=== PATIENT | female | born 2000 | race Caucasian/White ===

== ENCOUNTER 2023-11-20 | Emergency (ER) | payer MEDICAID, SELFPAY ==
[2023-11-20 00:02] VITALS: BP 117/66; PULSE 75; RESP 16; TEMP 37; O2SAT 100; BMI 20.7
--- NOTE | 2023-11-20 00:40 | ED.RN ---
Pt's name was called for rooming and pt not in waiting room, bathroom or outside.
== END 2023-11-20 00:42 | disposition left against medical advice (07) ==
LOC: ED 00:42
DX: Z00.00 Encounter for general adult medical examination without abnormal findings (principal)
CPT/HCPCS: 99281

== ENCOUNTER 2024-12-01 07:51 | Day surgery (SDC) | payer OTHER, SELFPAY ==
[2024-12-01] VITALS (10 sets, daily range): BP systolic 97–131; BP diastolic 59–78; PULSE 71–89; RESP 16; TEMP 36.4–36.7; O2SAT 96–100; BMI 21.2
--- NOTE | 2024-12-01 08:18 | PCM.PRE.AN2 ---
ASA Classification* ASA Classification ASA Classification: 3 Assessment & Plan Anesthesia* Anesthesia Assessment Anesthesia Assessment: Discussed sedation and/or anesthesia options, risks, benefits, and alternatives with patient/parents/legal guardian/POA. Questions invited. The patient/parents/legal guardian/POA seems to understand and agrees to proceed with anesthesia plan. Reviewed the physical assessment, medical history, allergy history and patient home medications list prior to surgery/procedure/anesthetic and documented any changes. Performed airway and anesthesia risk assessments. Anesthesia Type Anesthesia Type: General Anesthesia Focused Assessment* Airway Assessment Mouth opens: >3 cm Mallampati Score: II Labs Anesthesia Preop lab: CBC CHEMISTRY COAG Urine Test Pending 12/01/24 08:10 12/01/24 Pre-Assessment Diagnosis/Proposed Procedure Planned Operative Procedure(s): LEFT CUBITAL TUNNEL DECOMPRESSION, LEFT OPEN CARPAL TUNNEL RELEASE Anesthesia History Anesthesia History - neurological surgeon: Anesthesia History - neurological surgeon Hx Hospitalization No 11/17/24 15:41 Any Problems With Anesthesia No 11/17/24 15:41 Cholinesterase deficiency No 11/17/24 15:41 You/Your Family Experience No 11/17/24 15:41 fever (hyperthermia) with Relationship Recent Exposure to Contagious Disease Does patient have nerve No 11/17/24 15:41 stimulator Patient instructed to have device shut off --Does patient have Pacemaker or ICD? When Was Last Pacemaker Check QUESTION #4 FULL TEXT: You/Your Family Experience fever (hyperthermia) with Anesthesia Last Oral Intake Last Oral intake: Last Oral Intake NPO since Meds taken in AM with sips of water? Meds patient instructed to take am of surgery PONV PONV - neurological surgeon: PONV - neurological surgeon Female Yes 11/17/24 15:41 HX of Motion Sickness No 11/17/24 15:41 HX of N/V After Surgery No 11/17/24 15:41 Non-Smoker Yes 11/17/24 15:41 Duration of Surgery greater No 11/17/24 15:41 than 60 minutes Number of Risk Factors 2 11/17/24 15:41 PONV Score Moderate Risk 11/17/24 15:41 Height & Weight Height & Weight: Anesthesia: Height & Weight Height 5 ft 1 in 11/20/23 00:02 Respiratory Assessment Respiratory Assessment - neurological surgeon: Respiratory Tract Infection Hx - neurological surgeon Hx Respiratory Tract Infection No 11/17/24 15:41 STOP Sleep Apnea STOP Sleep Apnea - neurological surgeon: STOP Sleep Apnea - neurological surgeon Hx Hypertension No 11/17/24 15:41 Hx Sleep Apnea No 11/17/24 15:41 CPAP BIPAP Do you snore loudly (louder No 11/17/24 15:41 than talking or can be heard Do you often feel tired/ No 11/17/24 15:41 fatigued/ sleepy during daytime? Has anyone observed you stop No 11/17/24 15:41 breathing during sleep? STOP Results Negative 11/17/24 15:41 QUESTION #5 FULL TEXT : Do you snore loudly (louder than talking or can be heard through closed doors)? Tobacco Use History Tobacco Use History - neurological surgeon: Tobacco Use History - neurological surgeon Tobacco Use Smoking Status Current every day smoker 11/17/24 15:41 Hx Tobacco Use Yes 11/17/24 15:41 Years Smoking Packs Smoked per Day Smoking Cessation Date was within the last 15 years Hx Smoking Cessation Date Hx Smoking Cessation Counseling Hematologic Medial History Hematologic Hx - neurological surgeon: Hematologic Medical Hx - crack off person Hx of Blood Transfusion No 11/17/24 15:41 Hx of Transfusion in last 3 No 11/17/24 15:41 Months Date of Last Transfusion (if within last 3 months) Ever experience any problems No 11/17/24 15:41 with transfusion(s)? Specify any problems Hx of Preganancy in last 3 No 11/17/24 15:41 Months Nurse Filling Out Transfusion [email or web address] 11/17/24 15:41 & Questions: Date: 11/17/24 11/17/24 15:41 Time: 15:43 11/17/24 15:41 Patient unable to answer at this time (ie. confused, unrespo /Reproduction History /Reproductive History - neurological surgeon: /Reproductive Hx- neurological surgeon Hx Now No 11/17/24 15:41 Gestational Age (in weeks): EDC: Hx Hx Para Hx Section SAB No 11/17/24 15:41 Active Medications Active Medications: Current Medications Generic Name Dose Route Start Last Admin Trade Name Freq PRN Reason Stop Dose Admin Cefazolin Sodium 1 gm in 50 mls @ 100 mls/hr 12/01/24 09:30 IV 12/01/24 09:59 INTRAOP ONE Lactated Ringer's 1,000 mls @ 15 mls/hr 12/01/24 08:15 IV .Q48H COLETTE PFSH Medical History Schizophrenia Bipolar disorder Depression Anxiety Heartburn Smoker Allergy/AdvReac Type Severity Reaction Status Date / Time No Known Allergies Allergy Verified 12/01/24 08:18 Social History Smoking Status: Current every day smoker tobacco type: cigarettes Review of Systems (Anesthesia) ROS Narrative System reviewed and no additional complaints, except as documented.
[2024-12-01 08:25] LABS: Internal QC Validated? YES +Cl - CLEAR BKGD; Pregnancy, Urine Negative Negative; Record Kit Lot#,Urine Preg 962302
[2024-12-01] MEDS: Lactated Ringers 1,000 ML 15 ML IV (08:40)
[2024-12-01] MEDS: fentaNYL 100 MCG/2 ML Ampul IV (09:25)
[2024-12-01] MEDS: Cefazolin 1 GM/5 ML Vial IV (09:30)
[2024-12-01] MEDS: Bupiv/Epi 0.25% 30 ML Vial (09:45)
--- NOTE | 2024-12-01 10:41 | PCM.POST.ANE ---
Anesthesia: Postop Eval I Current Vital Signs Temperature: 98.1 F Pulse Rate: 79 Blood Pressure: 120/72 Respiratory Rate: 16 Pulse Ox: 96 Oxygen Delivery Method: Room Air Assessment Airway patent: Yes Spontaneous unlabored respirations: Yes Mental status: Awake and Calm nausea: No Vomiting: No Anesthesia Complication: No Fluid Hydration Crystalloid volume administer (ml): 400 Total IV fluid infused: 400 Progress Note Anesthesia document: Postop Eval 1 completed: Yes
--- NOTE | 2024-12-01 11:45 | POSTOPAN2_ITS ---
Anesthesia Postop Eval I Sum Postop Eval Completion status Anesthesia document: Postop Eval 1 completed: Yes Anesthesia Postop Eval I Summary Anesthesia Postop Eval I Summary: Anesthesia Postop Eval I: Assessment Summary Airway patent Yes 12/01/24 10:42 [email or web address] Spontaneous unlabored Yes 12/01/24 10:42 [email or web address] respirations Mental status Awake,Calm 12/01/24 10:42 [email or web address] nausea No 12/01/24 10:42 [email or web address].[email or web address] Vomiting No 12/01/24 10:42 [email or web address].[email or web address] Anesthesia Postop Eval I: Fluid Summary Crystalloid volume administer 400 12/01/24 10:42 [email or web address].[email or web address] (ml) Colloids volume administered ( ml) Blood Product volume administered (ml) Total IV fluid infused 400 12/01/24 10:42 [email or web address].[email or web address] Anesthesia Postop Eval I: Summary Notes Anesthesia Complication No 12/01/24 10:42 [email or web address] Anesthesia Complication Comment: Post-operative progress note Anesthesia: Postop Eval II Evaluation Mental status: Awake Pain Level: 0 nausea: No Vomiting: No
--- NOTE | 2024-12-01 11:45 | PCM.POSTANE2 ---
Anesthesia Postop Eval I Sum Postop Eval Completion status Anesthesia document: Postop Eval 1 completed: Yes Anesthesia Postop Eval I Summary Anesthesia Postop Eval I Summary: Anesthesia Postop Eval I: Assessment Summary Airway patent Yes 12/01/24 10:42 [email or web address] Spontaneous unlabored Yes 12/01/24 10:42 [email or web address] respirations Mental status Awake,Calm 12/01/24 10:42 [email or web address] nausea No 12/01/24 10:42 [email or web address] [email or web address] Vomiting No 12/01/24 10:42 [email or web address] Anesthesia Postop Eval I: Fluid Summary Crystalloid volume administer 400 12/01/24 10:42 [email or web address] [email or web address] (ml) Colloids volume administered ( ml) Blood Product volume administered (ml) Total IV fluid infused 400 12/01/24 10:42 [email or web address] [email or web address] Anesthesia Postop Eval I: Summary Notes Anesthesia Complication No 12/01/24 10:42 [email or web address] [email or web address] Anesthesia Complication Comment: Post-operative progress note Anesthesia: Postop Eval II Evaluation Mental status: Awake Pain Level: 0 nausea: No Vomiting: No
--- NOTE | 2024-12-01 18:28 | OP.PCM_ITS ---
Operative Report (Standard) Operative Information Date of Procedure: 12/01/24 Pre-Operative Diagnosis: 1. Left carpal tunnel syndrome 2. Left cubital tunnel syndrome Post-Operative Diagnosis: 1. Left carpal tunnel syndrome 2. Left cubital tunnel syndrome Surgery/Procedure Performed: 1. Left open carpal tunnel release 2. Left cubital tunnel decompression with subcutaneous ulnar nerve transposition embedded software test engineer: Yes Horizontal Boring Mill Set Up Operator: Arlin Griffin Tasks completed by first aid nurse: Opening & closing, Hemostasis: Electrocautery and Retracting Additional assistant pastry chef?: No Type of Anesthesia: General RN Documented Start/Stop Times: Operation Date: 12/01/24 09:30 Case Time Into Pre-Op 12/01/24 08:04 Out of Pre-Op 12/01/24 09:17 Anesthesia Start 12/01/24 09:19 Into Room 12/01/24 09:19 Procedure Start 12/01/24 09:42 Procedure End 12/01/24 10:27 Anesthesia End 12/01/24 10:31 Out of Room 12/01/24 10:31 Into Recovery 12/01/24 10:33 Into Phase II Recovery 12/01/24 11:37 Out of Recovery 12/01/24 11:37 Out of Phase II 12/01/24 12:13 Procedure Start Time: 09:42 Procedure Stop Time: 10:27 Select all DRAINS/GRAFTS/IMPLANTS that apply: None Estimated Blood Loss: 5 cc Specimen collected: No Description of surgery: Description of procedure: Patient was seen in preoperative holding area. Patient was identified by name, medical record number, date of . The operative extremity was marked with a surgical marker. We confirmed informed consent with the patient and all questions were answered to the patient's satisfaction. At time of her procedure, patient was brought to the operative suite and positioned supine a standard operating table. All bony prominences were well- padded. General anesthesia was induced and endotracheal tube placed. The operative upper extremity was then prepped for surgery by first applying a well- padded pneumatic tourniquet to the left upper arm. The hand table attached to the left side of the table. We spun the bed 90 degrees. The left upper extremity was then prepped and draped in normal, sterile orthopedic fashion. 1 g Ancef was administered prior to incision by anesthesia staff. We performed a timeout at this point confirming side, site, and operation to be performed. No concerns voiced and elected to proceed. Left upper extremity was then exsanguinated with an Esmarch bandage. Tourniquet was inflated to 250 mmHg for approximately 30 minutes. Esmarch was removed. I first of my attention of the carpal tunnel. Standard open carpal tunnel release was performed in line with the fourth ray proximal to Oakley's cardinal line and distal to the wrist crease. Full-thickness skin flaps were developed down to the level of the fascia. Heiss retractor was placed. Fascia was split in line with the incision. Transverse carpal ligament was then identified after taking the Heiss retractor deeper. Transverse carpal ligament was then identified and split in line with the incision. Carpal tunnel contents were identified. Proximal extension was performed ensuring complete release of the TCL. The distal antebrachial fascia was also released approximately 5 mm. Distally, release was continued until perivascular fat was identified. No aberrancies of median nerve were identified. Field block was administered with quarter percent bupivacaine with epinephrine. Skin edges were reapproximated interrupted horizontal mattress 4-0 nylon suture. I then turned my attention to the elbow. Oblique incision was made along the medial elbow between the medial epicondyle and olecranon. Blunt dissection was carried in the subcutaneous plane identifying the medial antebrachial cutaneous nerve which was protected throughout the case. I then identified the ulnar nerve at the 2 heads of the flexor carpi ulnaris. The superficial and deep fascia of the 2 heads of the FCU were released to free the ulnar nerve. I then dissected more proximally identifying Briggs's ligament which was released. The arcade of [place] was identified and released. I was able to palpate the nerve into the posterior compartment appeared to be free from any remaining constriction points or adhesions. The elbow was brought through range of motion and significant anterior instability was noted with flexion of the elbow. And placed a vessel loop around the ulnar nerve to mobilize it dissected free from surrounding adhesions and mobilize it out of its groove. I resected a 1 x 5 cm slip of medial intermuscular septum. I elevated a 3 cm flap of the flexor pronator mass fascia to secured to the subcutaneous fascia after the nerve had been transposed. Horizontal mattress 0 Vicryl suture was placed ensuring appropriate tension and free of kinking of the ulnar nerve. The elbow had a full range of motion and the ulnar was free and did not demonstrate any additional posterior instability. Wound was irrigated. Field block was administered with 10 cc quarter percent bupivacaine with epinephrine. The tourniquet was then deflated. Hemostasis was excellent. A Dermis was reapproximated buried 3-0 Vicryl suture and skin was closed with subcuticular 4- 0 Monocryl and Dermabond. Bulky sterile compression dressing was then applied. Patient was placed in a simple sling. Patient tolerated procedure well without apparent complication. Patient was transferred to PACU in stable condition. Need for skilled assistant pastry chef: Arlin Griffin PA-C was critical to the outcome of the case. During the course of the procedure the physician assistant pastry chef played a vital role. Her intimate knowledge of my steps in the procedure aided in safe and expedient completion of the procedure. The PA played a vital role in positioning particularly in obtaining the appropriate positioning. The PA was also vital in the retraction of soft tissues during the exposure and protecting vital structures. She also played a vital role in closure and dressing application with my direct supervision. Post Operative Plan: Weightbearing: Nonweightbearing operative extremity Antibiotics: Ancef 2 g x 1 dose preoperatively DVT Prophylaxis: Not indicated Garcia: None Dressing: Maintain surgical dressing x 2 days then okay to shower and removed. X-Rays: 2 weeks postop in the office Pain Medication: Oxycodone Rx upon discharge Follow-up: 2 weeks post-operatively in the office Surgical Findings: Unstable ulnar nerve following release. No aberrancies of the median nerve noted. Complete release of the transverse carpal ligament. Complications Complications: No Admit VTE Documentation VTE Present on Admission: No VTE Mechan Device Prophylaxis: SCD's VTE Pharm Prophylaxis ordered?: No Reason prophylaxis not ordered: Treatment Not Indicated
== END 2024-12-01 12:13 | disposition home or self-care (01) ==
LOC: SDC 08:00 → AC 08:02
PROVIDERS: Student in an Organized Health Care Education/Training Program; PCP Student in an Organized Health Care Education/Training Program; Referring Provider Student in an Organized Health Care Education/Training Program; Visit Provider Student in an Organized Health Care Education/Training Program
PROC: (CPT 64721; principal; 2024-12-01 09:15)
DX: G56.03 Carpal tunnel syndrome, bilateral upper limbs (principal); G56.23 Lesion of ulnar nerve, bilateral upper limbs; M25.322 Other instability, left elbow; F17.210 Nicotine dependence, cigarettes, uncomplicated; Z59.819 Housing instability, housed unspecified
CPT/HCPCS: 64718; 64721; 01810; 81025; J2405

== ENCOUNTER 2025-02-23 05:56 | Day surgery (SDC) | payer OTHER, SELFPAY ==
[2025-02-23] VITALS (13 sets, daily range): BP systolic 87–121; BP diastolic 44–79; PULSE 74–87; RESP 12–16; TEMP 36.3–37.1; O2SAT 95–100; BMI 23.3
[2025-02-23 06:29] LABS: Internal QC Validated? YES +Cl - CLEAR BKGD; Pregnancy, Urine Negative Negative; Record Kit Lot#,Urine Preg 0000980607
[2025-02-23] MEDS: Lactated Ringers 1,000 ML 15 ML IV (06:46)
--- NOTE | 2025-02-23 07:09 | PCM.PRE.AN2 ---
ASA Classification* ASA Classification ASA Classification: 2 Assessment & Plan Anesthesia* Anesthesia Assessment Anesthesia Assessment: Discussed sedation and/or anesthesia options, risks, benefits, and alternatives with patient/parents/legal guardian/POA. Questions invited. The patient/parents/legal guardian/POA seems to understand and agrees to proceed with anesthesia plan. Reviewed the physical assessment, medical history, allergy history and patient home medications list prior to surgery/procedure/anesthetic and documented any changes. Performed airway and anesthesia risk assessments. Anesthesia Type Anesthesia Type: General History Source History Obtained from:: Patient and Chart Anesthesia Focused Assessment* Temperature: 98.7 F Pulse Rate: 74 Blood Pressure: 120/79 Respiratory Rate: 16 Pulse Ox: 100 Oxygen Delivery Method: Room Air Airway Assessment Mouth opens: >3 cm Mallampati Score: I Teeth Condition: Chipped/Broken (Multiple chipped teeth.) and Missing (Multiple missing teeth. Rest are tight.) Neck Range of motion (ROM): Full ROM Labs Anesthesia Preop lab: CBC CHEMISTRY COAG Urine Test Negative Negative Today, 06:10 Pre-Assessment Diagnosis/Proposed Procedure Planned Operative Procedure(s): RIGHT OPEN CARPAL TUNNEL RELEASE RIGHT CUBITAL TUNNEL RELEASE Anesthesia History Anesthesia History - systems qa analyst: Anesthesia History - systems qa analyst Hx Hospitalization No 02/17/25 11:19 Any Problems With Anesthesia No 02/17/25 11:19 Cholinesterase deficiency No 02/17/25 11:19 You/Your Family Experience No 02/17/25 11:19 fever (hyperthermia) with Relationship Recent Exposure to Contagious No 02/23/25 06:48 Disease Does patient have nerve No 02/17/25 11:19 stimulator Patient instructed to have device shut off --Does patient have Pacemaker No 02/23/25 06:48 or ICD? When Was Last Pacemaker Check QUESTION #4 FULL TEXT: You/Your Family Experience fever (hyperthermia) with Anesthesia Last Oral Intake Last Oral intake: Last Oral Intake NPO since 02:00 02/23/25 06:48 Meds taken in AM with sips of No 02/23/25 06:48 water? Meds patient instructed to take am of surgery Any additional information?: Yes NPO since: 02:00 (Patient had water at 2 AM.) Meds taken in AM with sips of water?: No PONV PONV - systems qa analyst: PONV - systems qa analyst Female Yes 02/17/25 11:19 HX of Motion Sickness No 02/17/25 11:19 HX of N/V After Surgery No 02/17/25 11:19 Non-Smoker Yes 02/17/25 11:19 Duration of Surgery greater Yes 02/17/25 11:19 than 60 minutes Number of Risk Factors 3 02/17/25 11:19 PONV Score Moderate Risk 02/17/25 11:19 Height & Weight Height & Weight: Anesthesia: Height & Weight Height 5 ft 1 in 02/23/25 06:48 Weight: 56 kg 02/23/25 06:48 Body Mass Index (BMI) 23.3 02/23/25 06:48 Respiratory Assessment Respiratory Assessment - systems qa analyst: Respiratory Tract Infection Hx - systems qa analyst Hx Respiratory Tract Infection No 02/17/25 11:19 STOP Sleep Apnea STOP Sleep Apnea - systems qa analyst: STOP Sleep Apnea - systems qa analyst Hx Hypertension No 02/17/25 11:19 Hx Sleep Apnea No 02/17/25 11:19 CPAP BIPAP Do you snore loudly (louder No 02/17/25 11:19 than talking or can be heard Do you often feel tired/ No 02/17/25 11:19 fatigued/ sleepy during daytime? Has anyone observed you stop No 02/17/25 11:19 breathing during sleep? STOP Results Negative 02/17/25 11:19 QUESTION #5 FULL TEXT : Do you snore loudly (louder than talking or can be heard through closed doors)? Tobacco Use History Tobacco Use History - systems qa analyst: Tobacco Use History - systems qa analyst Tobacco Use Smoking Status Former smoker 02/17/25 11:19 Hx Tobacco Use Yes 02/17/25 11:19 Years Smoking Packs Smoked per Day Smoking Cessation Date was Yes - quit smoking within 15 02/17/25 11:19 within the last 15 years years Hx Smoking Cessation Date 12/04/24 02/17/25 11:19 Hx Smoking Cessation Counseling Hematologic Medial History Hematologic Hx - systems qa analyst: Hematologic Medical Hx - release of information specialist Hx of Blood Transfusion No 02/17/25 11:19 Hx of Transfusion in last 3 No 02/17/25 11:19 Months Date of Last Transfusion (if within last 3 months) Ever experience any problems No 02/17/25 11:19 with transfusion(s)? Specify any problems Hx of Preganancy in last 3 No 02/17/25 11:19 Months Nurse Filling Out Transfusion DSCHRIBER 02/17/25 11:19 & Questions: Date: 02/17/25 02/17/25 11:19 Time: 11:20 02/17/25 11:19 Patient unable to answer at this time (ie. confused, unrespo /Reproduction History /Reproductive History - systems qa analyst: /Reproductive Hx- systems qa analyst Hx Now No 02/17/25 11:19 Gestational Age (in weeks): EDC: Hx Hx Para Hx Section SAB No 02/17/25 11:19 Active Medications Active Medications: Current Medications Generic Name Dose Route Start Last Admin Trade Name Freq PRN Reason Stop Dose Admin Cefazolin Sodium 2 gm/ Sodium 110 mls @ 200 mls/hr 02/23/25 07:30 Chloride IV 02/23/25 08:02 INTRAOP ONE Lactated Ringer's 1,000 mls @ 15 mls/hr 02/23/25 06:15 02/23/25 06:46 IV 15 mls/hr .Q48H COLETTE Administration PFSH Medical History Marijuana use Alcohol use Substance abuse Former smoker Schizophrenia Bipolar disorder Depression Anxiety Heartburn Allergy/AdvReac Type Severity Reaction Status Date / Time oxycodone AdvReac Intermediate Nausea Verified 02/17/25 11:18 Surgical History History of carpal tunnel surgery of left wrist Social History Smoking Status: Former smoker Review of Systems (Anesthesia) ROS Narrative System reviewed and no additional complaints, except as documented.
[2025-02-23] MEDS: Midazolam 2 MG/2 ML Syringe IV (07:27)
[2025-02-23] MEDS: Cefazolin 1 GM/5 ML Vial 2 GM IV (07:27)
[2025-02-23] MEDS: Lidocaine 1% (5 ml sdv) 5 ML Vial 6 ML IV (07:32)
[2025-02-23] MEDS: fentaNYL 100 MCG/2 ML Ampul IV (07:42)
[2025-02-23] MEDS: Lidocaine 1% /Epi 1:100 (20ml) 20 ML Vial (08:16)
[2025-02-23] MEDS: dexMEDEtomidine 200 MCG/2 ML ML 20 MCG IV (08:19)
--- NOTE | 2025-02-23 08:29 | OP.PCM_ITS ---
Operative Report (Standard)
--- NOTE | 2025-02-23 08:29 | PCM.OPRPT ---
Operative Report (Standard) Operative Information Date of Procedure: 02/23/25 Pre-Operative Diagnosis: 1. Right carpal tunnel syndrome 2. Right cubital tunnel syndrome Post-Operative Diagnosis: 1. Right carpal tunnel syndrome 2. Right cubital tunnel syndrome with ulnar nerve instability Surgery/Procedure Performed: 1. Right open carpal tunnel release 2. Right cubital tunnel decompression with anterior subcutaneous ulnar nerve transposition refrigerator tester: Yes Fish Roe Processor: Arlin Griffin Tasks completed by first aid instructor: Opening & closing and Retracting Type of Anesthesia: General RN Documented Start/Stop Times: Operation Date: 02/23/25 07:30 Case Time Into Pre-Op 02/23/25 06:05 Out of Pre-Op 02/23/25 07:22 Anesthesia Start 02/23/25 07:27 Into Room 02/23/25 07:27 Procedure Start 02/23/25 07:44 Procedure End 02/23/25 08:22 Anesthesia End 02/23/25 08:27 Out of Room 02/23/25 08:27 Procedure Start Time: 07:44 Procedure Stop Time: 08:22 Select all DRAINS/GRAFTS/IMPLANTS that apply: None Estimated Blood Loss: 10 cc Specimen collected: No Description of surgery: Patient was seen in preoperative holding area. Patient was identified by name, medical record number, date of . The operative extremity was marked with a surgical marker. We confirmed informed consent with the patient and all questions were answered to the patient's satisfaction. At time of her procedure, patient was brought to the operative suite and positioned supine a standard operating table. All bony prominences were well-padded. General anesthesia was induced and endotracheal tube placed. The operative upper extremity was then prepped for surgery by first applying a well-padded pneumatic tourniquet to the right upper arm. The hand table attached to the right side of the table. We spun the bed 90 degrees. The right upper extremity was then prepped and draped in normal, sterile orthopedic fashion. 1 g Ancef was administered prior to incision by anesthesia staff. We performed a timeout at this point confirming side, site, and operation to be performed. No concerns voiced and elected to proceed. Right upper extremity was then exsanguinated with an Esmarch bandage. Tourniquet was inflated to 250 mmHg for approximately 25 minutes. Esmarch was removed. I first of my attention of the carpal tunnel. Standard open carpal tunnel release was performed in line with the fourth ray proximal to Oakley's cardinal line and distal to the wrist crease. Full-thickness skin flaps were developed down to the level of the fascia. Heiss retractor was placed. Fascia was split in line with the incision. Transverse carpal ligament was then identified after taking the Heiss retractor deeper. Transverse carpal ligament was then identified and split in line with the incision. Carpal tunnel contents were identified. Proximal extension was performed ensuring complete release of the TCL. The distal antebrachial fascia was also released approximately 5 mm. Distally, release was continued until perivascular fat was identified. No aberrancies of median nerve were identified. Field block was administered with quarter percent bupivacaine with epinephrine. Incision was closed with interrupted intradermal buried 2-0 Vicryl suture and subcuticular 4 Monocryl and Dermabond/Steri-Strip. I then turned my attention to the elbow. Oblique incision was made along the medial elbow between the medial epicondyle and olecranon. Blunt dissection was carried in the subcutaneous plane identifying the medial antebrachial cutaneous nerve which was protected throughout the case. I then identified the ulnar nerve at the 2 heads of the flexor carpi ulnaris. The superficial and deep fascia of the 2 heads of the FCU were released to free the ulnar nerve. I then dissected more proximally identifying Briggs's ligament which was released. The arcade of [place] was identified and released. I was able to palpate the nerve into the posterior compartment appeared to be free from any remaining constriction points or adhesions. The elbow was brought through range of motion and significant anterior instability was noted with flexion of the elbow. And placed a vessel loop around the ulnar nerve to mobilize it dissected free from surrounding adhesions and mobilize it out of its groove. I resected a 1 x 5 cm slip of medial intermuscular septum. I elevated a 3 cm flap of the flexor pronator mass fascia to secured to the subcutaneous fascia after the nerve had been transposed. Horizontal mattress 0 Vicryl suture was placed ensuring appropriate tension and free of kinking of the ulnar nerve. The elbow had a full range of motion and the ulnar was free and did not demonstrate any additional posterior instability. Wound was irrigated. Field block was administered with 10 cc quarter percent bupivacaine with epinephrine. The tourniquet was then deflated. Hemostasis was excellent. A Dermis was reapproximated buried 3-0 Vicryl suture and skin was closed with subcuticular 4-0 Monocryl and Dermabond/Steri-Strip. Bulky sterile compression dressing was then applied. Patient was placed in a simple sling. Patient tolerated procedure well without apparent complication. Patient was transferred to PACU in stable condition. Need for skilled transition assistant: Arlin Griffin PA-C was critical to the outcome of the case. During the course of the procedure the physician transition assistant played a vital role. Her intimate knowledge of my steps in the procedure aided in safe and expedient completion of the procedure. The PA played a vital role in positioning particularly in obtaining the appropriate positioning. The PA was also vital in the retraction of soft tissues during the exposure and protecting vital structures. She also played a vital role in closure and dressing application with my direct supervision. Post Operative Plan: Weightbearing: Nonweightbearing operative extremity Antibiotics: Ancef 1 g x 1 dose preoperatively DVT Prophylaxis: Not indicated Garcia: None Dressing: Maintain surgical dressing x 2 days then okay to shower and remove. X-Rays: 2 weeks postop in the office Pain Medication: Oxycodone Rx upon discharge Follow-up: 2 weeks post-operatively in the office Surgical Findings: Unstable ulnar nerve following release. No aberrancies of the median nerve noted. Complete release of the transverse carpal ligament. Complications Complications: No Admit VTE Documentation VTE Present on Admission: No VTE Mechan Device Prophylaxis: SCD's VTE Pharm Prophylaxis ordered?: No Reason prophylaxis not ordered: Treatment Not Indicated
--- NOTE | 2025-02-23 10:16 | POSTOP.ANE_ITS ---
Anesthesia: Postop Eval I
--- NOTE | 2025-02-23 10:16 | PCM.POST.ANE ---
Anesthesia: Postop Eval I Current Vital Signs Temperature: 97.8 F Pulse Rate: 87 Blood Pressure: 106/51 Respiratory Rate: 16 Pulse Ox: 99 Assessment Airway patent: Yes Spontaneous unlabored respirations: Yes nausea: No Vomiting: No Anesthesia Complication: No Fluid Hydration Crystalloid volume administer (ml): 800 Total IV fluid infused: 800 Progress Note Anesthesia document: Postop Eval 1 completed: Yes
--- NOTE | 2025-02-23 11:46 | POSTOPAN2_ITS ---
Anesthesia Postop Eval I Sum
--- NOTE | 2025-02-23 11:46 | PCM.POSTANE2 ---
Anesthesia Postop Eval I Sum Postop Eval Completion status Anesthesia document: Postop Eval 1 completed: Yes Anesthesia Postop Eval I Summary Anesthesia Postop Eval I Summary: Anesthesia Postop Eval I: Assessment Summary Airway patent Yes 02/23/25 10:16 [email or web address] Spontaneous unlabored Yes 02/23/25 10:16 [email or web address] [email or web address] respirations Mental status nausea No 02/23/25 10:16 [email or web address] [email or web address] Vomiting No 02/23/25 10:16 [email or web address] Anesthesia Postop Eval I: Fluid Summary Crystalloid volume administer 800 02/23/25 10:16 [email or web address] (ml) Colloids volume administered ( ml) Blood Product volume administered (ml) Total IV fluid infused 800 02/23/25 10:16 [email or web address] Anesthesia Postop Eval I: Summary Notes Anesthesia Complication No 02/23/25 10:16 [email or web address] Anesthesia Complication Comment: Post-operative progress note Anesthesia: Postop Eval II Evaluation Mental status: Awake and Calm Pain Level: 1 nausea: No Vomiting: No Complications Anesthesia Complication: No
== END 2025-02-23 10:26 | disposition home or self-care (01) ==
LOC: SDC 05:56 → AC 05:58
PROVIDERS: Anesthesiology; PCP Student in an Organized Health Care Education/Training Program; Referring Provider Student in an Organized Health Care Education/Training Program; Visit Provider Student in an Organized Health Care Education/Training Program
PROC: (CPT 64721; principal; 2025-02-23 07:15)
DX: G56.01 Carpal tunnel syndrome, right upper limb (principal); G56.21 Lesion of ulnar nerve, right upper limb; Z87.891 Personal history of nicotine dependence
CPT/HCPCS: 64718; 64721; 01710; 81025; J2405